=== PATIENT | female | born 1970 | race Caucasian/White ===

== ENCOUNTER 2020-12-14 10:57 | Outpatient (CLI) | payer OTHER, SELFPAY ==
[2020-12-14 12:07] LABS: SARS-CoV-2 RNA PCR Positive (Negative)
== END 2020-12-14 10:58 | disposition home or self-care (01) ==
PROVIDERS: PCP Internal Medicine; Visit Provider Internal Medicine
DX: U07.1 COVID-19 (principal)
CPT/HCPCS: C9803; U0003; U0005

== ENCOUNTER 2020-12-15 08:50 | Outpatient (CLI) | payer OTHER, SELFPAY ==
[2020-12-15] MEDS: FAMOTIDINE 20 MG TABLET PO (10:57)
[2020-12-15] MEDS: ACETAMINOPHEN 325 MG TABLET 650 MG PO (10:57)
[2020-12-15] MEDS: diphenhydrAMINE HCl CAP 25 MG CAPSULE PO (10:57)
[2020-12-15 11:15] VITALS: BP 132/80; PULSE 88; RESP 18; TEMP 37.2; O2SAT 94
== END 2020-12-15 08:51 | disposition home or self-care (01) ==
PROVIDERS: PCP Internal Medicine; Visit Provider Nurse Practitioner Family
DX: Z23 Encounter for immunization (principal); U07.1 COVID-19
CPT/HCPCS: A9270; M0239; M0245; Q0239; Q0245